=== PATIENT | male | born 1990 | race Hispanic/Latino ===

== ENCOUNTER 2023-04-12 02:38 | Emergency (ER) | payer SELFPAY ==
[~2023-04-12] VITALS: Ht 162.6 cm; Wt 120.0 kg
[2023-04-12] VITALS (8 sets, daily range): BP systolic 126–167; BP diastolic 75–99
[~2023-04-12 02:38] MED LIST: BACTRIM DS1 TAB PO; MAALOX PO
[2023-04-12 03:26] LABS: BASO% 0.5 % (0-3); EOS% 3.3 % (0-8); HEMATOCRIT 45.7 % (39.0-50.0); HEMOGLOBIN 15.5 g/dl (14.0-18.0); IMMATURE GRANULOCYTES 0.3 % (0.0-5.0); LYMPH% 35.6 % (15-41); MEAN CELL VOLUME 84.2 fL CALC (80.0-100.0); MEAN CORPUSCULAR HGB 28.5 pG CALC (26.0-32.0); MEAN CORPUSCULAR HGB CONC 33.9 g/dL CAL (32.0-36.0); NEUT# 4.67 thou/uL (1.82-7.42); NEUT% 53.3 % (42-76); RED BLOOD COUNT 5.43 mill/uL (4.70-6.10); RED CELL DISTRI WIDTH 11.7 % (11.5-15.5)
[2023-04-12 03:39] LABS: ALBUMIN 4.3 g/dL (3.2-5.0); ALKALINE PHOSPHATASE 129 u/l (38-126); ANION GAP 13 (6-22 (CALC)); BILIRUBIN, TOTAL 0.3 mg/dL (0.2-1.3); BUN 16 mg/dL (9-20); BUN/CREATININE RATIO 21 (12-20 (CALC)); CARBON DIOXIDE 22 mmol/l (22-30); CHLORIDE 106 mmol/l (95-108); CREATININE 0.7 mg/dL (0.7-1.3); GFR FOR AFR.AMER. > 60 ML/MIN (>=60 (CALC)); GFR OTHER RACES > 60 ML/MIN (>=60 (CALC)); POTASSIUM 3.9 mmol/l (3.5-5.1); SGOT/AST 64 u/l (17-59); SODIUM 138 mmol/l (137-146); TOTAL PROTEIN 7.6 g/dL (6.3-8.2)
[2023-04-12] MEDS ORDERED: ROBITUSSIN AC10 ML PO (04:23)
[2023-04-12] MEDS ORDERED: KEFLEX500 MG PO (04:23)
== END 2023-04-12 04:33 | disposition home or self-care (01) | DRG 153 ==
LOC: ED 02:38
PROVIDERS: Emergency Medicine
DX: J06.9 Acute upper respiratory infection, unspecified (principal); I10 Essential (primary) hypertension; Z20.822 Contact with and (suspected) exposure to COVID-19